=== PATIENT | male | born 1995 | race Caucasian/White ===

== ENCOUNTER 2021-10-22 15:26 | Emergency (ER) | payer OTHER ==
[2021-10-22] MEDS ORDERED: BACTRIM DS TAB1 EACH PO (19:36)
[2021-10-22] MEDS ORDERED: HYDROCODON-ACE1 EAC4 PO (19:36)
== END 2021-10-22 19:45 | disposition home or self-care (01) ==
LOC: ER1 15:26
DX: L05.91 Pilonidal cyst without abscess (principal); Z79.899 Other long term (current) drug therapy
CPT/HCPCS: 10080; 99282; J2270